=== PATIENT | male | born 1980 | race Two or more races ===

== ENCOUNTER 2019-03-23 12:54 | Emergency (ER) | payer MEDICAID ==
[~2019-03-23] VITALS: Ht 188 cm; Wt 114.0 kg
[2019-03-23 13:20] VITALS: BP 133/89
--- NOTE | 2019-03-23 13:50 | NUR ---
In to see pt. Here for suture removal. Seen here 7 days ago. Wound well healing. No signs of infection.
== END 2019-03-23 14:03 | disposition home or self-care (01) ==
LOC: ED 13:57
DX: S71.111D Laceration without foreign body, right thigh, subsequent encounter (principal); X58.XXXD Exposure to other specified factors, subsequent encounter
CPT/HCPCS: 99282

== ENCOUNTER 2020-12-02 16:16 | Emergency (ER) | payer SELFPAY ==
[~2020-12-02] VITALS: Ht 190.5 cm; Wt 100.0 kg
--- NOTE | 2020-12-02 16:24 | NUR ---
NIL X1
--- NOTE | 2020-12-02 16:42 | NUR ---
NIL X2
--- NOTE | 2020-12-02 16:54 | NUR ---
NILX3
--- NOTE | 2020-12-02 16:58 | NUR ---
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
--- NOTE | 2020-12-02 17:05 | NUR ---
PT BIBA FROM HOME FOR C/O OF D/V, DENIES VOMITING FOR 2 DAYS WITH EPIGASTRIC PAIN. DENIES CP/SOB. 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 PT AXOX4. CHANGED INTO GOWN, MONITORS IN PLACE. CALL LIGHT WITHIN REACH. BED IN LOWEST POSITION.
--- NOTE | 2020-12-02 17:43 | NUR ---
ERP AT BS
[2020-12-02] MEDS ORDERED: MORPHINE SULFATE 4 MG/ML, 1ML ONE (17:48)
[2020-12-02] MEDS ORDERED: FAMOTIDINE 20 MG/2 ML ONE (17:48)
[2020-12-02] MEDS ORDERED: ONDANSETRON 2MG/ML, 2ML ONE (17:48)
--- NOTE | 2020-12-02 17:59 | NUR ---
PT AMBULATORY TO BR WITH UPRIGHT STEADY GAIT
[2020-12-02] MEDS ORDERED: MORPHINE SULFATE 4 MG/ML, 1ML IVPush PRN (18:00)
[2020-12-02 18:02] LABS: MEAN CORPUSCULAR HEMOGLOBIN 28.2 pg (27.5-34.5); MEAN CORPUSCULAR HGB CONC 33.5 g/dL (33.2-36.2); MEAN PLATELET VOLUME 7.7 fL (7.4-10.4); PLATELET COUNT 240 x10^3/uL (130-400); RED BLOOD COUNT 5.18 x10^6/uL (4.38-5.82); RED CELL DISTRIBUTION WIDTH 14.1 % (9.4-14.8)
[2020-12-02 18:09] LABS: CHLORIDE 113 mmol/L (98-107)
--- NOTE | 2020-12-02 18:10 | NUR ---
PIV PLACED, PT MEDICATED PER EMAR. CALL LIGHT WITHIN REACH. BED IN LOWEST POSITION. NO NEEDS AT THIS TIME
[2020-12-02 18:14] LABS: ALANINE AMINOTRANSFERASE 278 U/L (12-78); ALKALINE PHOSPHATASE 159 U/L (45-117); ANION GAP 8 mmol/L (5-15); BILIRUBIN,TOTAL 0.4 mg/dL (0.2-1.0); CALCIUM 8.9 mg/dL (8.5-10.1); CREATININE 0.92 mg/dL (0.7-1.3); TOTAL PROTEIN 6.8 g/dL (6.4-8.2)
[2020-12-02] MEDS ORDERED: FAMOTIDINE 20 MG/2 ML IVPush ONE (18:30)
[2020-12-02] MEDS ORDERED: SODIUM CHLORIDE FLUSH 10ML SYR IVF ONE (18:30)
[2020-12-02] MEDS ORDERED: ONDANSETRON 2MG/ML, 2ML IVPush ONE (18:30)
--- NOTE | 2020-12-02 18:34 | NUR ---
PT TO RADIOLOGY
--- NOTE | 2020-12-02 18:43 | NUR ---
PT BACK FROM RADIOLOGY, CONNECTED TO MONITORS. CALL LIGHT WITHIN REACH
--- NOTE | 2020-12-02 18:53 | NUR ---
REPORT TO ARNOLDO WESTON
[2020-12-02 18:54] LABS: <PLATELET ESTIMATE> ADEQUATE; <PLT MORPHOLOGY> NORMAL PLT MORPH; <RBC MORPHOLOGY> NORMAL; BAND#(MANUAL) 0.24 x10^3/uL; BANDS%(MANUAL) 2 % (0-7); EOS#(MANUAL) 0.12 x10^3/uL (0.0-0.4); EOS% (MANUAL) 1 % (1-7); LYMPH#(MANUAL) 3.36 x10^3/uL (1-3.4); LYMPHS% (MANUAL) 28 % (22-44); MONOS% (MANUAL) 10 % (2-9); SEG#(MANUAL) 7.08 x10^3/uL (1.8-6.8); SEGS% (MANUAL) 59 % (42-75)
--- NOTE | 2020-12-02 19:56 | NUR ---
US AT BEDSIDE.
--- NOTE | 2020-12-02 20:39 | NUR ---
PT REQUESTING MORE PAIN MEDS
[2020-12-02 20:40] VITALS: BP 135/86
[2020-12-02] MEDS ORDERED: DICYCLOMINE 20 MG TABLET ONE (20:53)
[2020-12-02] MEDS ORDERED: DICYCLOMINE 10 MG CAPSULE PO ONE (21:00)
== END 2020-12-02 21:05 | disposition home or self-care (01) ==
LOC: ED 20:55
DX: R10.13 Epigastric pain (principal); R19.7 Diarrhea, unspecified; R94.5 Abnormal results of liver function studies; R94.31 Abnormal electrocardiogram [ECG] [EKG]
CPT/HCPCS: 36415; 74022; 76700; 80053; 80320; 83690; 85025; 93005; 96374; 96375; 99285; J2270; J2405; G0480

== ENCOUNTER 2020-12-07 14:28 | Emergency (ER) | payer SELFPAY ==
[~2020-12-07] VITALS: Ht 190.5 cm; Wt 129.0 kg
[2020-12-07 14:32] VITALS: BP 158/107
--- NOTE | 2020-12-07 14:51 | NUR ---
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
[2020-12-07 15:13] LABS: MEAN CORPUSCULAR HEMOGLOBIN 28.2 pg (27.5-34.5); MEAN CORPUSCULAR HGB CONC 33.6 g/dL (33.2-36.2); MEAN PLATELET VOLUME 7.8 fL (7.4-10.4); PLATELET COUNT 302 x10^3/uL (130-400); RED BLOOD COUNT 4.83 x10^6/uL (4.38-5.82); RED CELL DISTRIBUTION WIDTH 14.4 % (9.4-14.8)
[2020-12-07 15:21] LABS: ALANINE AMINOTRANSFERASE 103 U/L (12-78); ALBUMIN 2.8 g/dL (3.4-5.0); ANION GAP 4 mmol/L (5-15); CALCIUM 8.5 mg/dL (8.5-10.1); CHLORIDE 110 mmol/L (98-107); CREATININE 0.89 mg/dL (0.7-1.3)
[2020-12-07 15:23] LABS: ALKALINE PHOSPHATASE 127 U/L (45-117); BILIRUBIN,TOTAL 0.3 mg/dL (0.2-1.0); TOTAL PROTEIN 6.8 g/dL (6.4-8.2)
[2020-12-07 15:47] LABS: <PLATELET ESTIMATE> ADEQUATE; <PLT MORPHOLOGY> NORMAL PLT MORPH; <RBC MORPHOLOGY> NORMAL; BAND#(MANUAL) 0.11 x10^3/uL; BANDS%(MANUAL) 1 % (0-7); EOS#(MANUAL) 1.07 x10^3/uL (0.0-0.4); EOS% (MANUAL) 10 % (1-7); LYMPHS% (MANUAL) 28 % (22-44); MONOS#(MANUAL) 0.75 x10^3/uL (0.3-2.7); MONOS% (MANUAL) 7 % (2-9); SEG#(MANUAL) 5.78 x10^3/uL (1.8-6.8); SEGS% (MANUAL) 54 % (42-75)
[2020-12-07 16:49] LABS: AMPHETAMINE SCREEN, URINE Negative (Negative); BARBITURATE SCREEN, URINE Negative (Negative); BENZODIAZEPINE SCREEN, URINE Negative (Negative); CANNABINOID SCREEN, URINE Negative (Negative); COCAINE SCREEN, URINE Negative (Negative); METHADONE SCREEN, URINE Negative (Negative); OPIATE SCREEN, URINE Negative (Negative)
--- NOTE | 2020-12-07 17:13 | NUR ---
discharge reviewed, pt verbalized understanding, ambulatory to dc with steady gait.
== END 2020-12-07 17:16 | disposition home or self-care (01) ==
LOC: ED 17:11
DX: R94.5 Abnormal results of liver function studies (principal)
CPT/HCPCS: 36415; 80053; 80307; 83690; 85025; 99283

== ENCOUNTER 2021-01-05 14:13 | Emergency (ER) | payer SELFPAY ==
[~2021-01-05] VITALS: Ht 190.5 cm; Wt 110.0 kg
[2021-01-05] MEDS ORDERED: MAALOX/HYOSCYAMINE/LIDOCAINE 45 ML BTL ONE (15:07)
[2021-01-05 15:30] LABS: ALANINE AMINOTRANSFERASE 62 U/L (12-78); ALBUMIN 3.9 g/dL (3.4-5.0); ANION GAP 6 mmol/L (5-15); CALCIUM 8.4 mg/dL (8.5-10.1); CHLORIDE 110 mmol/L (98-107); CREATININE 1.17 mg/dL (0.7-1.3)
[2021-01-05] MEDS ORDERED: MAALOX/HYOSCYAMINE/LIDOCAINE 45 ML BTL PO ONE (15:30)
[2021-01-05 15:32] LABS: ALKALINE PHOSPHATASE 87 U/L (45-117); BILIRUBIN,TOTAL 1.2 mg/dL (0.2-1.0); TOTAL PROTEIN 7.8 g/dL (6.4-8.2)
[2021-01-05 15:35] LABS: BASOPHILS % (AUTO) 0 % (0-1); EOSINOPHILS % (AUTO) 3 % (1-7); LYMPHOCYTES % (AUTO) 40 % (22-44); MEAN CORPUSCULAR HEMOGLOBIN 28.5 pg (27.5-34.5); MEAN CORPUSCULAR HGB CONC 33.8 g/dL (33.2-36.2); MEAN PLATELET VOLUME 7.8 fL (7.4-10.4); MONOCYTES % (AUTO) 10 % (2-9); NEUTROPHILS % (AUTO) 47 % (42-75); PLATELET COUNT 231 x10^3/uL (130-400); RED BLOOD COUNT 5.29 x10^6/uL (4.38-5.82); RED CELL DISTRIBUTION WIDTH 14.6 % (9.4-14.8)
--- NOTE | 2021-01-05 15:40 | NUR ---
Pt requested water for urine drug screen, checked with provider and provided pt with water and urinal.
[2021-01-05 16:26] VITALS: BP 132/70
[2021-01-05 17:23] LABS: AMPHETAMINE SCREEN, URINE Negative (Negative); BARBITURATE SCREEN, URINE Negative (Negative); BENZODIAZEPINE SCREEN, URINE Negative (Negative); CANNABINOID SCREEN, URINE Negative (Negative); COCAINE SCREEN, URINE Negative (Negative); METHADONE SCREEN, URINE Negative (Negative); OPIATE SCREEN, URINE Negative (Negative)
== END 2021-01-05 17:08 | disposition home or self-care (01) ==
LOC: ED 17:00
DX: K59.00 Constipation, unspecified (principal); R10.12 Left upper quadrant pain; K62.5 Hemorrhage of anus and rectum
CPT/HCPCS: 36415; 74021; 80053; 80307; 83690; 85025; 99284